=== PATIENT | male | born 1940 | race Caucasian/White ===

== ENCOUNTER → 2017-11-03 | Day surgery (SDC) | payer MEDICARE ==
[~2017-11-03] VITALS: Ht 175.3 cm; Wt 93.5 kg
[~2017-11-03] MED LIST: CHLORHEXIDINE GLUCONATE 2 % 1 PACK (2 CLOTHS) TOPICAL PRN; GABA400C5 PO; HYDR12.56 PO; LACTATED RINGER'S 1000 ML IV PRN; LIDOCAINE 1%/EPINEPHrine 1:100,000 SOLN 20 ML VIAL ONE; METOPROLOL TARTRATE 25 MG TAB PO PRN; NEUR300C PO; PERC5TAB12 PO; POVIDONE IODINE 5% (ANTISEPSIS KIT) 4 APPLICATIONS EACH NARE PRN; SODIUM BICARBONATE 8.4% INJ 0 ML ONE; SODIUM CHLORID 0.9% 500 ML IV PRN; SPIRCAP INH; TAMS0.4C4 PO; TELM1TAB2 PO; TELM1TAB56 PO; UMEC1INH INH; ceFAZolin 2 GM PREMIX 50 ML IV SCH; fentaNYL CITRATE 250 MCG/5 ML AMP ONE; oxyCODONE/ACETAMINOPHEN 5 MG/325 MG TAB ONE
[2017-11-03] MEDS: BACITRACIN TOP OINT 15 GM TUBE ONE (08:53)
--- NOTE | 2017-11-03 09:34 | PD.OP ---
Operative Report 1 Squamous cell carcinoma Left parietal scalp 2 Lesion Left side ala nose, previous Basal cell carcinoma Postoperative Diagnosis: 1 Squamous cell carcinoma Left parietal scalp 2 Lesion Left side ala nose, previous Basal cell carcinoma Procedure: 1 Squamous cell carcinoma Left parietal scalp 3x2 cm excision, frozen section , Full thickness skin graft from left neck 2 Lesion Left side ala nose, previous Basal cell carcinoma. 1.5 cm diameter excision, frozen section, frozen section, Full thickness skin graft from left neck Anesthesia: gen Surgeon: Austen Timmons Music Therapy Specialist(s): rn Resident Surgeon: gustavo Operation and Findings: Indications: Biopsy proven SCC Left mid parietal scalp and a bleeding lesion left nose ala that was a previous BCC. Patient has had several skin cancers, multiple skin grafts etc and is familiar with the surgery, risks and possible complications etc, he is wishes to go ahead with this surgery Procedure: Preoperative markings were made in holding. Patient was brought to the OR, anesthesia started, prep and drape done, time out completed. Left nose and left side scalp lesions injected with dilute mix of saline and lido with epi 1%. Specimens excised - scalp 3x2 cm, nose 1.5 cm [place]. Suture marked and sent for frozen section. Hemostasis completed. Full thickness skin graft harvested from the left neck just below the ear lobe, defatted and thinned and applied to the scalp and the nose, the nose graft was split in two parts to create a slight fold effect at the alar border position. Sutured in with 4/0 Chromic sutures. Few sutures taken through the graft into the nose and the graft tied down to the tissue base as well. Donor site closed with 3/0 vicryl internal sutures only, no skin sutures needed. Frozen section report received in the mean time indicated clean margins. Further final path will follow. Intraoperative blood loss approx 5 cc, No complications, Patient remained stable. Sterile dressings with xeroform, eye pad applied and sutured in place with prolene sutures. Austen Timmons MD November 03, 2017 09:34
[2017-11-03 11:00] VITALS: BP 152/73; PULSE 64; RESP 16; TEMP 98; O2SAT 98
== END | disposition home or self-care (01) ==
LOC: PHSDC 06:06
PROVIDERS: ATTEND Plastic Surgery
DX: C44.42 Squamous cell carcinoma of skin of scalp and neck (principal); C44.311 Basal cell carcinoma of skin of nose; Z01.818 Encounter for other preprocedural examination
CPT/HCPCS: 00300; 11624; 11642; 15220; 15260; 88305; 88331; J0690; J3010; J7120